=== PATIENT | male | born 1965 | race Caucasian/White ===

== ENCOUNTER 2017-12-10 17:29 | Inpatient (IN) | payer OTHER ==
[~2017-12-10] VITALS: Ht 172.7 cm; Wt 101.6 kg
[2017-12-10 19:03] LABS: CALCIUM 9.5 mg/dL (8.5-10.1); CARBON DIOXIDE 24.2 mmol/L (21-32); CHLORIDE SERUM 98 mmol/L (98-107); CREATININE SERUM 1.1 mg/dL (0.7-1.3); GFR1 > 60 mL/min; GLUCOSE SERUM 167 mg/dL (74-106); POTASSIUM SERUM 3.3 mmol/L (3.5-5.1); SODIUM SERUM 133 mmol/L (136-145)
[2017-12-10 19:08] LABS: ALKALINE PHOSPHATASE 87 U/L (46-116); ALT/SGPT 39 U/L (16-63); AST/SGOT 15 U/L (15-37); BILIRUBIN TOTAL 0.72 mg/dL (0.20-1.00); TOTAL PROTEIN, SERUM 7.5 g/dL (6.4-8.2)
[2017-12-10 19:15] LABS: PLATELET COUNT 306 x10^3mcL (130-400); RED CELL DISTRIBUTION WIDTH 13.8 % (11.5-14.5)
[2017-12-10 19:42] LABS: AMPHETAMINE QUAL UR NONE DETECTED (See below)
[2017-12-10 19:47] LABS: BAND NEUTROPHIL 3 % (0-10); BASOPHIL 0 % (0-2); MONOCYTE 7 % (0-7); SEGMENTED NEUTROPHILS 82 % (37-75); rbc morphology (normal/abnorm) ABNORMAL (NORMAL)
[2017-12-10 21:21] LABS: microscopic required? NO
[2017-12-10 21:26] LABS: UA SPECIFIC GRAVITY <=1.005 (1.005-1.035); urine erythrocyte NEGATIVE (NEGATIVE)
[2017-12-10 21:37] LABS: MAGNESIUM 1.9 mg/dL (1.8-2.4); PHOSPHOROUS 3.1 mg/dL (2.5-4.9)
[2017-12-10 21:45] LABS: T3 TOTAL 1.11 ng/mL
[2017-12-10 21:53] VITALS: BP 165/100
[2017-12-10 22:01] VITALS: Ht 172.7 cm; Wt 101.6 kg
[2017-12-10 22:07] LABS: CHOLESTEROL/HDL RATIO 5.9
[2017-12-10 22:09] LABS: FREE T4 1.46 ng/dL (0.76-1.46); FREE THYROXINE INDEX 3.6 ug/dL (1.4-4.5); T4(THYROXINE) 10.4 ug/dL (4.7-13.3)
[2017-12-11 05:51] VITALS: BP 151/87
[2017-12-11 09:11] LABS: BASOPHIL % 0.2 % (0-2); PLATELET COUNT 265 x10^3mcL (130-400); RED CELL DISTRIBUTION WIDTH 13.8 % (11.5-14.5)
[2017-12-11 09:20] LABS: CALCIUM 8.3 mg/dL (8.5-10.1); CHLORIDE SERUM 105 mmol/L (98-107); CREATININE SERUM 0.9 mg/dL (0.7-1.3); GFR1 > 60 mL/min; GLUCOSE SERUM 133 mg/dL (74-106); MAGNESIUM 2.1 mg/dL (1.8-2.4); POTASSIUM SERUM 4.2 mmol/L (3.5-5.1); SODIUM SERUM 138 mmol/L (136-145)
[2017-12-11 09:30] VITALS: BP 157/81
[2017-12-11 13:18] VITALS: BP 152/62
[2017-12-11 16:56] VITALS: BP 139/82
[2017-12-11 19:42] VITALS: BP 127/86
[2017-12-11 21:28] VITALS: BP 165/89
[2017-12-12 05:24] VITALS: BP 156/84
[2017-12-12 09:36] VITALS: BP 140/82
[2017-12-12 17:16] VITALS: BP 166/96
[2017-12-12 21:41] VITALS: BP 136/81
[2017-12-13 05:26] VITALS: BP 113/75
[2017-12-13 08:50] VITALS: BP 133/80
== END 2017-12-13 10:02 | disposition left against medical advice (07) | DRG 918 ==
LOC: ED 17:29 → DU 20:26
PROVIDERS: Emergency Medicine; Internal Medicine
DX: T43.592A Poisoning by other antipsychotics and neuroleptics, intentional self-harm, initial encounter (principal); E87.1 Hypo-osmolality and hyponatremia; F25.9 Schizoaffective disorder, unspecified; I16.0 Hypertensive urgency; E87.6 Hypokalemia; R73.03 Prediabetes; E78.5 Hyperlipidemia, unspecified; E78.1 Pure hyperglyceridemia; F17.210 Nicotine dependence, cigarettes, uncomplicated; Y92.018 Other place in single-family (private) house as the place of occurrence of the external cause; Z68.35 Body mass index [BMI] 35.0-35.9, adult
CPT/HCPCS: 83880; 84439; G0480; J1200; J1630; J2060; J2543; J7030; Q0092